=== PATIENT | female | born 1960 | race Caucasian/White ===

== ENCOUNTER 2020-01-26 16:15 | Outpatient (CLI) | payer OTHER, SELFPAY ==
[2020-01-26 16:37] LABS: INR 2.2; Prothrombin Time 23.7 Seconds (11.1-14.7)
== END 2020-01-26 16:16 | disposition home or self-care (01) ==
LOC: ANHLAB 16:17
PROVIDERS: PCP Internal Medicine; Visit Provider Internal Medicine Cardiovascular Disease
DX: I48.0 Paroxysmal atrial fibrillation (principal)
CPT/HCPCS: 36415; 85610

== ENCOUNTER 2020-05-22 08:37 | Outpatient (RCR) | payer OTHER, SELFPAY ==
[2020-03-21 13:37] LABS: INR 2.3
[2020-05-22 09:12] LABS: INR 2.5; Prothrombin Time 26.6 Seconds (11.1-14.7)
== END 2020-06-19 23:59 | disposition home or self-care (01) ==
LOC: ANHLAB 08:37
PROVIDERS: PCP Internal Medicine; Visit Provider Internal Medicine Cardiovascular Disease
DX: I48.0 Paroxysmal atrial fibrillation (principal)
CPT/HCPCS: 36415; 85610

== ENCOUNTER 2020-08-09 08:30 | Outpatient (CLI) | payer OTHER, SELFPAY ==
--- NOTE | ~2020-08-09 | US_ITS ---
US right upper quadrant DATE: 08/09/2020 08:55 INDICATION: Elevated liver enzyme levels TECHNIQUE: Real-time imaging of liver, pancreas, gallbladder areas COMPARISON: None FINDINGS: No hepatic or pancreatic space-occupying mass lesion is evident. Normal hepatopedal portal venous flow direction. No gallstones or gallbladder wall thickening or abnormal pericholecystic fluid collection are evident . Negative sonographic Peter's sign. The common bile duct measures 2 mm, normal. IMPRESSION: No significant abnormality Reviewed, dictated and finalized at [facility]. Reviewed, dictated and finalized at location B. IMPRESSION: No significant abnormality
== END 2020-08-09 08:31 | disposition home or self-care (01) ==
PROVIDERS: PCP Internal Medicine; Visit Provider Nurse Practitioner
DX: R74.8 Abnormal levels of other serum enzymes (principal)
CPT/HCPCS: 76705

== ENCOUNTER 2020-08-31 10:47 | Outpatient (RCR) | payer OTHER, SELFPAY ==
[2020-07-23 10:15] LABS: Basophils Absolute Auto 0.1 K/mm3 (0.0-0.1); Basophils Percent Auto 1.1 % (0.2-1.2); Eosinophils Absolute Auto 0.3 K/mm3 (0-0.3); Eosinophils Percent Auto 4.5 % (0-4.4); Hematocrit 48.7 % (37.0-47.0); Immature Granulocyte Absolute 0.02 K/mm3 (0.00-0.031); Immature Granulocyte Percent A 0.3 % (0-0.5); Lymphocytes Absolute Auto 1.37 K/mm3 (0.9-3.2); Lymphocytes Percent Auto 20.7 % (18.3-44.2); Mean Corpuscular HGB Conc 32.9 g/dl (32-36); Mean Corpuscular Hemoglobin 31.1 pg (26-34); Mean Corpuscular Volume 94.7 fl (80-100); Mean Platelet Volume 10.7 fl (7.4-10.4); Monocytes Absolute Auto 0.6 K/mm3 (0.1-0.6); Monocytes Percent Auto 8.9 % (2.6-8.5); Neutrophils Absolute Auto 4.3 K/mm3 (1.3-6.7); Neutrophils Percent Auto 64.5 % (45.5-73.1); Platelet Count Result 162 k/mm3 (150-375); Red Blood Count 5.14 M/mm3 (4.2-5.4); Red Cell Distribution Width 13.6 % (11.5-14.5); White Blood Count 6.6 K/mm3 (4.5-10.0)
[2020-07-23 10:28] LABS: Alanine Aminotransferase 50 U/L (4-35); Albumin Level 4.9 g/dL (3.5-5.1); Alkaline Phosphatase 56 U/L (38-126); Anion Gap 5 mmol/L (8-16); Aspartate Amino Transferase 67 U/L (14-36); Bilirubin,Total 0.5 mg/dL (0.2-1.3); Blood Urea Nitrogen 17 mg/dL (7-17); Calcium 9.5 mg/dL (8.4-10.2); Carbon Dioxide 33 mmol/L (22-30); Chloride 98 mmol/L (98-107); Cholesterol 204 mg/dL (0-200); Estimated Glomerular Filt Rate > 60; Glucose 94 mg/dL (65-105); HDL Direct 79 mg/dL; Potassium 4.5 mmol/L (3.4-5.0); Sodium 136 mmol/L (137-145); Triglycerides 132 mg/dL (<150)
[2020-07-23 10:35] LABS: INR 2.6
[2020-07-23 10:39] LABS: LDL Cholesterol Direct 88 mg/dL
[2020-08-31 11:23] LABS: INR 2.8; Prothrombin Time 29.1 Seconds (11.1-14.7)
== END 2020-10-21 23:59 | disposition home or self-care (01) ==
LOC: ANHLAB 10:47
PROVIDERS: PCP Internal Medicine; Referring Provider Nurse Practitioner; Visit Provider Internal Medicine Cardiovascular Disease
DX: I48.0 Paroxysmal atrial fibrillation (principal); Z13.228 Encounter for screening for other metabolic disorders
CPT/HCPCS: 36415; 80053; 80061; 85025; 85610

== ENCOUNTER 2020-08-31 13:59 | Emergency (ER) | payer OTHER, SELFPAY ==
[2020-08-31] VITALS (12 sets, daily range): BP systolic 111–144; BP diastolic 55–85; PULSE 85–118; RESP 14–35; TEMP 36.2; O2SAT 94–100
--- NOTE | ~2020-08-31 | XR_ITS ---
EXAMINATION: XR chest 2V 08/31/2020 15:40 INDICATION: Chest palpitations PROCEDURE: 2 view chest COMPARISON: 09/02/2019 FINDINGS: The lungs are clear. The cardiomediastinal silhouette is within normal limits. There are no pleural effusions. There is no pneumothorax suspected. There are breast implants. IMPRESSION: 1: NO ACUTE CARDIOPULMONARY DISEASE. Reviewed, dictated and finalized at location B.
--- NOTE | 2020-08-31 14:11 | ECG_ITS ---
Measurements Intervals [place] Rate: 103 P: AL: 0 QRS: -51 QRSD: 117 T: 96 QT: 335 QTc: 440 Interpretive Statements ATRIAL FLUTTER/TACHYCARDIA WITH RAPID VENTRICULAR RESPONSE LEFT AXIS DEVIATION INCOMPLETE LEFT BUNDLE BRANCH BLOCK ANTEROSEPTAL INFARCT, AGE INDETERMINATE BORDERLINE ST-T WAVE ABNORMALITY- HIGH LATERAL LEADS ABNORMAL ECG Electronically Signed On 08-31-2020 15:10:22 CDT by Bronson Grewal D.O.
--- NOTE | 2020-08-31 14:52 | ED.GENADULT ---
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 Reports she went into yesterday. She feels discomfort up in her throat and also feels like her head legs are heavy. This happens anytime she goes into atrial fibrillation. She takes flecainide. She followed up with her white lead grinder today who sent her to see ER for further evaluation. Denies chest discomfort or shortness of breath. She has no nausea or vomiting or sweats. She reports she has been under increased stress because her sister is terminally ill with cancer and is going to undergo some operations in the near future. Related Data Allergies Allergy/AdvReac Type Severity Reaction Status Date / Time No Known Allergies Allergy Unknown Verified 08/31/20 10:12 Review of Systems Review of Systems: All systems reviewed & are unremarkable except as noted in HPI and below Constitutional: Constitutional: Denies chills, Denies fever(s) and Denies weakness ENT: Denies nasal congestion and Denies sore throat Cardiovascular: Cardiovascular: Denies chest pain, Reports rapid heart rate and Reports radiating jaw, neck or arm pain Respiratory: Respiratory: Denies cough and Denies dyspnea Gastrointestinal: Gastrointestinal: Denies abdominal pain, Denies nausea and Denies vomiting Musculoskeletal: Musculoskeletal: Denies back pain and Denies muscle cramps Comments: Leg heaviness PMFSH Past Medical History Medical History Anxiety Atrial fibrillation Broken femur August 2018 Pulmonary emphysema Transaminitis Surgical History Surgical History (Updated 09/12/19 @ 10:58 by Marion Pizarro [facility]) H/O tubal ligation Family History Family History Mother Family history of malignant neoplasm of cervix Sibling Acute myocardial infarction Lung cancer Social History Social History Smoking packs per day: 0.5 Smoking cigarettes per day: 10.0 Smoking status: Current every day smoker Tobacco type: cigarettes Second hand tobacco smoke exposure: Yes Alcohol intake: never Substance use: never Gender identity (if verbalized by the patient): Female Exam Narrative: Exam Narrative: GENERAL: Well-appearing, well-nourished, and in no acute distress. HEAD: Normocephalic, atraumatic. ENT: Mucous membranes moist. CHEST: Clear to auscultation. No respiratory distress. HEART: Irregular regular rate and rhythm is tachycardic. Normal peripheral pulses. ABDOMEN: Soft, nontender, nondistended. EXTREMITIES: Normal range of motion. No edema. SKIN: Warm, dry, no rash. NEURO: Alert and oriented x3. Course Course Emergency Course: Discussed case with Dr. Mota. Patient has had improvement in heart rate. No hypoxia here and went on a walking O2 study without any hypoxia. Patient be started on Cardizem 180 mg CD daily. Needs follow-up in 1 week. Patient verbalized understanding. Vital Signs Vital signs: Vital Signs Pulse Rate 102 H 08/31/20 14:07 Respiratory Rate 33 H 08/31/20 14:07 Blood Pressure 144/85 H 08/31/20 14:07 Pulse Oximetry 98 08/31/20 14:07 Temperature 97.1 F L 08/31/20 14:11 Pulse Rate 96 08/31/20 16:15 Respiratory Rate 24 H 08/31/20 16:15 Blood Pressure 118/73 08/31/20 16:11 Pulse Oximetry 99 08/31/20 16:15 Medical Decision Making Vital Signs Vital Signs: Vital Signs Pulse Rate 102 H 08/31/20 14:07 Respiratory Rate 33 H 08/31/20 14:07 Blood Pressure 144/85 H 08/31/20 14:07 Pulse Oximetry 98 08/31/20 14:07 Temperature 97.1 F L 08/31/20 14:11 Pulse Rate 96 08/31/20 16:15 Respiratory Rate 24 H 08/31/20 16:15
--- NOTE | 2020-08-31 15:01 | PC.NURSE ---
Pt ambulatory to bathroom. Denies chest tightness or shortness of breath. Pt states is feeling better. Note pt's heart rate has decreased to the 90's. Pt stood up and heart rate increases to [address] Melo made aware.
[2020-08-31] MEDS: dilTIAZem HCl INJ 25 MG/5 ML VIAL 10 MG IV PUSH (15:04)
[2020-08-31 15:47] LABS: Basophils Absolute Auto 0.1 K/mm3 (0.0-0.1); Basophils Percent Auto 0.8 % (0.2-1.2); Eosinophils Absolute Auto 0.2 K/mm3 (0-0.3); Eosinophils Percent Auto 2.1 % (0-4.4); Hematocrit 45.5 % (37.0-47.0); Immature Granulocyte Absolute 0.02 K/mm3 (0.00-0.031); Immature Granulocyte Percent A 0.2 % (0-0.5); Lymphocytes Absolute Auto 2.17 K/mm3 (0.9-3.2); Lymphocytes Percent Auto 21.8 % (18.3-44.2); Mean Corpuscular Hemoglobin 31.8 pg (26-34); Mean Corpuscular Volume 96.4 fl (80-100); Mean Platelet Volume 11.3 fl (7.4-10.4); Monocytes Absolute Auto 1.1 K/mm3 (0.1-0.6); Monocytes Percent Auto 10.6 % (2.6-8.5); Neutrophils Absolute Auto 6.4 K/mm3 (1.3-6.7); Neutrophils Percent Auto 64.5 % (45.5-73.1); Platelet Count Result 199 k/mm3 (150-375); Red Blood Count 4.72 M/mm3 (4.2-5.4); Red Cell Distribution Width 13.4 % (11.5-14.5)
[2020-08-31 15:57] LABS: INR 2.9; Prothrombin Time 29.6 Seconds (11.1-14.7)
[2020-08-31 15:58] LABS: Partial Thromboplastin Time 34.6 SECONDS (22.3-36.8)
[2020-08-31 16:00] LABS: Anion Gap 4 mmol/L (8-16); Blood Urea Nitrogen 29 mg/dL (7-17); Calcium 9.5 mg/dL (8.4-10.2); Carbon Dioxide 38 mmol/L (22-30); Chloride 97 mmol/L (98-107); Estimated CRCL calculation 74 ml/min; Estimated Glomerular Filt Rate > 60; Glucose 67 mg/dL (65-105); Potassium 4.3 mmol/L (3.4-5.0); Sodium 139 mmol/L (137-145)
[2020-08-31 16:13] LABS: Troponin I < 0.012 ng/mL (0.000-0.034)
--- NOTE | 2020-08-31 16:23 | ECG_ITS ---
Measurements Intervals [place] Rate: 88 P: SD: 0 QRS: -51 QRSD: 114 T: 82 QT: 401 QTc: 487 Interpretive Statements ATRIAL FLUTTER/TACHYCARDIA LEFT AXIS DEVIATION INCOMPLETE LEFT BUNDLE BRANCH BLOCK ANTEROSEPTAL INFARCT, AGE INDETERMINATE BORDERLINE ST-T WAVE ABNORMALITY- HIGH LATERAL LEADS ABNORMAL ECG Electronically Signed On 08-31-2020 17:12:29 CDT by Bronson Grewal D.O.
--- NOTE | 2020-08-31 16:23 | PC.NURSE ---
EKG repeated due to pt having possible change in cardiac rhythm.
--- NOTE | 2020-08-31 16:29 | PC.NURSE ---
Dr. Melo ambulating patient around department with pulse oximetry.
== END 2020-08-31 16:39 | disposition home or self-care (01) ==
PROVIDERS: Emergency Provider Emergency Medicine; PCP Internal Medicine
DX: I48.91 Unspecified atrial fibrillation (principal); J43.9 Emphysema, unspecified; F17.210 Nicotine dependence, cigarettes, uncomplicated; I44.7 Left bundle-branch block, unspecified; R94.31 Abnormal electrocardiogram [ECG] [EKG]
CPT/HCPCS: 36415; 71046; 80048; 84484; 85025; 85610; 85730; 93005; 96374; 99284

== ENCOUNTER 2020-11-29 09:49 | Outpatient (CLI) | payer OTHER, SELFPAY ==
[2020-11-29 10:22] LABS: Basophils Absolute Auto 0.1 K/mm3 (0.0-0.1); Basophils Percent Auto 0.9 % (0.2-1.2); Eosinophils Absolute Auto 0.3 K/mm3 (0-0.3); Eosinophils Percent Auto 3.4 % (0-4.4); Hematocrit 45.3 % (37.0-47.0); Immature Granulocyte Absolute 0.01 K/mm3 (0.00-0.031); Immature Granulocyte Percent A 0.1 % (0-0.5); Lymphocytes Absolute Auto 1.41 K/mm3 (0.9-3.2); Lymphocytes Percent Auto 17.8 % (18.3-44.2); Mean Corpuscular HGB Conc 33.1 g/dl (32-36); Mean Corpuscular Hemoglobin 31.4 pg (26-34); Mean Corpuscular Volume 94.8 fl (80-100); Mean Platelet Volume 11.4 fl (7.4-10.4); Monocytes Absolute Auto 0.8 K/mm3 (0.1-0.6); Monocytes Percent Auto 10.3 % (2.6-8.5); Neutrophils Absolute Auto 5.3 K/mm3 (1.3-6.7); Neutrophils Percent Auto 67.5 % (45.5-73.1); Platelet Count Result 170 k/mm3 (150-375); Red Blood Count 4.78 M/mm3 (4.2-5.4); Red Cell Distribution Width 13.4 % (11.5-14.5); White Blood Count 7.9 K/mm3 (4.5-10.0)
== END 2020-11-29 09:50 | disposition home or self-care (01) ==
PROVIDERS: Family Provider Internal Medicine Infectious Disease; PCP Internal Medicine; Visit Provider Clinical Nurse Specialist
DX: D75.1 Secondary polycythemia (principal)
CPT/HCPCS: 36415; 85025

== ENCOUNTER 2021-01-14 12:58 | Outpatient (RCR) | payer OTHER, SELFPAY ==
[2020-10-24 13:52] LABS: INR 2.2; Prothrombin Time 24.7 Seconds (11.1-14.7)
[2021-01-03 13:40] LABS: INR 1.3; Prothrombin Time 16.6 Seconds (11.1-14.7)
== END 2021-01-22 23:59 | disposition home or self-care (01) ==
LOC: ANHLAB 12:58
PROVIDERS: PCP Internal Medicine; Visit Provider Internal Medicine Cardiovascular Disease
DX: I48.91 Unspecified atrial fibrillation (principal); Z13.220 Encounter for screening for lipoid disorders; Z13.228 Encounter for screening for other metabolic disorders
CPT/HCPCS: 36415; 85610

== ENCOUNTER 2021-04-15 08:53 | Outpatient (RCR) | payer OTHER, SELFPAY ==
[2021-03-01 14:21] LABS: INR 2.8; Prothrombin Time 29.8 Seconds (11.1-14.7)
[2021-04-15 09:17] LABS: INR 2.4; Prothrombin Time 27.1 Seconds (11.1-14.7)
== END 2021-05-30 23:59 | disposition home or self-care (01) ==
LOC: ANHLAB 08:53
PROVIDERS: PCP Internal Medicine; Visit Provider Internal Medicine Cardiovascular Disease
DX: I48.91 Unspecified atrial fibrillation (principal)
CPT/HCPCS: 36415; 85610

== ENCOUNTER 2021-08-01 12:15 | Outpatient (CLI) | payer OTHER, SELFPAY ==
[2021-08-01 12:38] LABS: Basophils Percent Auto 0.6 % (0.2-1.2); Eosinophils Absolute Auto 0.2 K/mm3 (0-0.3); Eosinophils Percent Auto 2.7 % (0-4.4); Hemoglobin 14.9 g/dL (12.0-15.0); Immature Granulocyte Absolute 0.01 K/mm3 (0.00-0.031); Immature Granulocyte Percent A 0.2 % (0-0.5); Lymphocytes Absolute Auto 1.44 K/mm3 (0.9-3.2); Lymphocytes Percent Auto 21.9 % (18.3-44.2); Mean Corpuscular HGB Conc 31.7 g/dl (32-36); Mean Corpuscular Hemoglobin 31.2 pg (26-34); Mean Corpuscular Volume 98.5 fl (80-100); Monocytes Absolute Auto 0.8 K/mm3 (0.1-0.6); Monocytes Percent Auto 11.5 % (2.6-8.5); Neutrophils Absolute Auto 4.2 K/mm3 (1.3-6.7); Neutrophils Percent Auto 63.1 % (45.5-73.1); Platelet Count Result 161 k/mm3 (150-375); Red Blood Count 4.77 M/mm3 (4.2-5.4); Red Cell Distribution Width 13.3 % (11.5-14.5); White Blood Count 6.6 K/mm3 (4.5-10.0)
[2021-08-01 12:52] LABS: Alanine Aminotransferase 42 U/L (4-35); Albumin Level 4.8 g/dL (3.5-5.1); Alkaline Phosphatase 60 U/L (38-126); Anion Gap 9 mmol/L (8-16); Aspartate Amino Transferase 64 U/L (14-36); Bilirubin,Total 0.5 mg/dL (0.2-1.3); Blood Urea Nitrogen 15 mg/dL (7-17); Calcium 9.4 mg/dL (8.4-10.2); Carbon Dioxide 30 mmol/L (22-30); Chloride 100 mmol/L (98-107); Cholesterol 196 mg/dL (0-200); Estimated Glomerular Filt Rate > 60; Glucose 102 mg/dL (65-110); HDL Direct 81 mg/dL; Potassium 4.4 mmol/L (3.4-5.0); Sodium 139 mmol/L (137-145); Triglycerides 88 mg/dL (<150)
[2021-08-01 13:03] LABS: LDL Cholesterol Direct 85 mg/dL
== END 2021-08-01 12:16 | disposition home or self-care (01) ==
LOC: ANHLAB 12:17
PROVIDERS: PCP Internal Medicine; Visit Provider Clinical Nurse Specialist
DX: Z13.220 Encounter for screening for lipoid disorders (principal); I48.91 Unspecified atrial fibrillation; D75.1 Secondary polycythemia
CPT/HCPCS: 36415; 80053; 80061; 85025

== ENCOUNTER 2021-08-13 13:33 | Outpatient (CLI) | payer OTHER, SELFPAY ==
[2021-08-13 15:25] LABS: Thyroid Stimulating Hormone 0.074 uIU/mL (0.465-4.680)
[2021-08-13 15:35] LABS: HIV 1/2 Ab P24 Ag Result Negative (Negative)
[2021-08-13 16:36] LABS: Hepatitis B Surface Antigen Negative (Negative)
[2021-08-13 19:00] LABS: Iron 125 ug/dL (37-170); Percent Iron Saturation 35 % (20-50)
[2021-08-21 23:45] LABS: Gliadin AB, IgG <1.0 U/mL (<15.0); Reticulin IgA Negative (Negative); TTG IGA AB <1.0 U/mL (<15.0)
== END 2021-08-13 13:34 | disposition home or self-care (01) ==
PROVIDERS: PCP Internal Medicine; Visit Provider Nurse Practitioner
DX: R74.01 Elevation of levels of liver transaminase levels (principal)
CPT/HCPCS: 36415; 83516; 83540; 83550; 84443; 86255; 86703; 87340; G0432

== ENCOUNTER 2021-08-15 13:48 | Outpatient (CLI) | payer OTHER, SELFPAY ==
[2021-08-15 15:02] LABS: Free T4 Free Thyroxine 1.74 ng/mL (0.78-2.19)
[2021-08-15 15:05] LABS: Thyroid Stimulating Hormone 0.115 uIU/mL (0.465-4.680)
[2021-08-20 07:28] LABS: Triiodothyronine T3 Free 2.4 pg/mL (2.3-4.2)
== END 2021-08-15 13:49 | disposition home or self-care (01) ==
PROVIDERS: PCP Internal Medicine; Visit Provider Nurse Practitioner
DX: E05.90 Thyrotoxicosis, unspecified without thyrotoxic crisis or storm (principal)
CPT/HCPCS: 36415; 84439; 84443; 84481

== ENCOUNTER 2021-09-04 13:51 | Outpatient (CLI) | payer OTHER, SELFPAY ==
--- NOTE | ~2021-09-04 | CT_ITS ---
EXAMINATION: CT lung screening DATE: 09/04/2021 14:15 INDICATION: Personal history of tobacco dependence TECHNIQUE: Computed tomography (CT) of the chest was performed without intravenous contrast. The dose -length product was 63.96 mGy-cm. Automated exposure control and iterative reconstruction technique w ere employed. COMPARISON: CT dated 08/12/2019 FINDINGS: There are bilateral breast implants. There is mild atherosclerosis of the aorta and coronar y arteries. No aneurysm. Heart size normal. No significant pleural or pericardial effusion. There are mildly enlarged mediastinal lymph nodes, likely reactive. The upper abdomen is unremarkable. There i s emphysema. There is 2 mm right upper lobe nodule, coronal image 44. There are additional small nodu les in the upper lobes measuring 2 mm or less. No focal consolidation. No pneumothorax. No acute bone or joint abnormality. Mild lumbar spondylosis. Thyroid gland is unremarkable. IMPRESSION: 1. Lung-RADS category 2: Benign appearance or behavior. Continue annual screening with noncontrast lo w-dose chest CT in 12 months. Reviewed, dictated and finalized at location A. IMPRESSION: 1. Lung-RADS category 2: Benign appearance or behavior. Continue annual screeni ng with noncontrast low-dose chest CT in 12 months.
== END 2021-09-04 13:52 | disposition home or self-care (01) ==
LOC: ANHIMG 13:52
PROVIDERS: PCP Internal Medicine; Visit Provider Nurse Practitioner
DX: Z12.2 Encounter for screening for malignant neoplasm of respiratory organs (principal); Z87.891 Personal history of nicotine dependence
CPT/HCPCS: 71271

== ENCOUNTER 2021-10-09 01:08 | Day surgery (SDC) | payer OTHER, SELFPAY ==
[2021-09-20 14:06] VITALS: BMI 18.5
--- NOTE | 2021-10-09 07:30 | P.PNAN_ITS ---
Anes - Initial Pre Proc Eval Procedure: Operation Date: 10/09/21 10:15 Proposed Procedures p Esophagogastroduodenoscopy - Dung Rankin MD Date/Time: 10/09/21 07:30 Surgeon: Dung Rankin MD Pre Op Diagnosis: Epigastric pain Patient Data Age: 60 Gender: F Height: 1.75 m Weight: 57 kg Allergies Allergy/AdvReac Type Severity Reaction Status Date / Time No Known Allergies Allergy Unknown Verified 10/09/21 09:01 Home Medications Medication Instructions Recorded Confirmed Type warfarin 5 mg tablet 5 mg PO DAILY #30 tablet 08/21/20 09/20/21 Rx flecainide 100 mg tablet 100 mg PO Q12H #60 tablet 02/22/21 09/20/21 Rx venlafaxine 37.5 mg 37.5 mg PO DAILY #90 cap 06/17/21 09/20/21 Rx capsule,extended release 24 hr Patient hx anesthesia problems: none Family hx anesthesia problems: none Results Review: All pre-operative results and documents have been reviewed as part of the pre-operative evaluation. [facility] Past Medical History Medical History Anxiety Atrial fibrillation Broken femur August 2018 Hyperthyroidism Hyperthyroidism Pulmonary emphysema Transaminitis Surgical History Surgical History H/O tubal ligation Family History Family History Mother Family history of malignant neoplasm of cervix Sibling Acute myocardial infarction Lung cancer Social History Social History Smoking packs per day: 1 Smoking cigarettes per day: 20.0 Years smoked: 40 Smoking pack-years: 40.00 Smoking status: Former smoker Tobacco type: cigarettes Second hand tobacco smoke exposure: Yes Smoking end date: 03/09/21 Alcohol intake: never Substance use: never Living arrangements: alone Gender identity (if verbalized by the patient): Female Spiritual care concerns: No Anes - Eval Final PreProcedure Day of Procedure 10/09/21 07:30 Patient weight: thin Heart: regular rate and rhythm Lungs: clear to auscultation and normal air movement Airway: Mallampati scale class II Neurological: alert and oriented Last oral intake: >/= 8 hours ASA classification: III Emergent: no Anesthetic plan: proceed Anesthesia type and monitoring: general GIVS and standard monitoring Results Review: All pre-operative results and documents have been reviewed as part of the pre-operative evaluation. Informed Consent: The patient's anesthetic plan and its attendant risks and benefits were discussed with the patient/family/POA. Questions were solicited and answers provided to the satisfaction of the patient/family/POA.
[2021-10-09 09:02] VITALS: BP 121/65; PULSE 80; RESP 18; TEMP 36.6; O2SAT 100
[2021-10-09] MEDS: LACTATED RINGERS 1,000 ML 150 ML IV CONT (09:21)
--- NOTE | 2021-10-09 09:37 | PM.HPGS ---
History of Present Illness History of Present Illness Consent: Risks, benefits, and alternatives have been discussed and questions answered. Patient agrees to proceed with procedure. Chief complaint: Epigastric pain Narrative: Mireya Manriquez is a 60 year old female with epigastric pain and queasiness sensation, denies reflux though, not using ppi. Review of Systems Constitutional: Constitutional: Denies headache(s) and Denies weakness Eyes: Eyes: Denies blurry vision ENT: Reports Normal hearing present, Denies headache(s) and Denies neck pain Cardiovascular: Cardiovascular: Denies chest pain and Denies dyspnea Respiratory: Respiratory: Denies dyspnea Gastrointestinal: Gastrointestinal: Reports no additional gastrointestinal complaints Genitourinary: Genitourinary: Denies dysuria Musculoskeletal: Musculoskeletal: Denies neck pain Integumentary/Breasts: Skin/Breast: Denies dry skin Neurologic: Reports Normal hearing present, Denies headache(s) and Denies weakness Psychiatric: Psychiatric: Denies anxiety Endocrine: Endocrine: Denies change in body appearance Hematologic/Lymphatic: Hematologic/Lymphatic: Denies easy bleeding Allergic/Immunologic: Allergic/Immunologic: Denies urticaria [facility] Past Medical History Medical History (Updated 10/09/21 @ 09:38 by Dung Rankin MD) Anxiety Atrial fibrillation Broken femur August 2018 Epigastric pain Hyperthyroidism Hyperthyroidism Pulmonary emphysema Transaminitis Surgical History Surgical History H/O tubal ligation Family History Family History Mother Family history of malignant neoplasm of cervix Sibling Acute myocardial infarction Lung cancer Social History Social History Smoking packs per day: 1 Smoking cigarettes per day: 20.0 Years smoked: 40 Smoking pack-years: 40.00 Smoking status: Former smoker Tobacco type: cigarettes Second hand tobacco smoke exposure: Yes Smoking end date: 03/09/21 Alcohol intake: never Substance use: never Living arrangements: alone Gender identity (if verbalized by the patient): Female Spiritual care concerns: No Meds Home Medications and Allergies Home Medications Medication Instructions Recorded Confirmed Type warfarin 5 mg tablet 5 mg PO DAILY #30 tablet 08/21/20 09/20/21 Rx flecainide 100 mg tablet 100 mg PO Q12H #60 tablet 02/22/21 09/20/21 Rx venlafaxine 37.5 mg 37.5 mg PO DAILY #90 cap 06/17/21 09/20/21 Rx capsule,extended release 24 hr Allergies Allergy/AdvReac Type Severity Reaction Status Date / Time No Known Allergies Allergy Unknown Verified 10/09/21 09:01 Vital Signs Vital Signs - 24 hr 10/09/21 09:02 Temperature 97.8 F Pulse Rate 80 Respiratory Rate 18 Blood Pressure 121/65 Pulse Oximetry 100 Exam Const: General: comfortable and no acute distress HENMT: General nose exam: Normal nares present Eyes: General: appearance normal, both eyes and all related structures Neck: Neck: no JVD Resp: Auscultation: clear to auscultation bilaterally Cardio: Rate: regular rate Rhythm: regular rhythm GI: Inspection: non-distended GI Palp: Yes Soft to palpation Skin: General skin exam: normal color Neuro: General: gait normal Speech: normal speech Extrem: General: normal to inspection Psych: Mental Status: mental status grossly normal Assessment and Plan Assessment and plan (1) Epigastric pain: Code(s): R10.13 - Epigastric pain Status: Acute Assessment and Plan: egd with bx
[2021-10-09 09:49] VITALS: BP 116/77; PULSE 99; RESP 28; O2SAT 100
[2021-10-09 09:59] VITALS: BP 120/72; PULSE 88; RESP 24; O2SAT 100
[2021-10-09 10:09] VITALS: BP 124/82; PULSE 85; RESP 20; O2SAT 100
== END 2021-10-09 10:20 | disposition home or self-care (01) ==
PROVIDERS: PCP Internal Medicine; Visit Provider Internal Medicine Gastroenterology
PROC: 0DJ08ZZ Inspection of Upper Intestinal Tract, Via Natural or Artificial Opening Endoscopic (ICD-10-PCS; CPT 43235; principal; 2021-10-09 10:15)
DX: K29.50 Unspecified chronic gastritis without bleeding (principal); K44.9 Diaphragmatic hernia without obstruction or gangrene; I48.91 Unspecified atrial fibrillation; F41.9 Anxiety disorder, unspecified; E05.90 Thyrotoxicosis, unspecified without thyrotoxic crisis or storm; Z87.891 Personal history of nicotine dependence; Z79.01 Long term (current) use of anticoagulants
CPT/HCPCS: 43239; 88305; J2704; J7120

== ENCOUNTER 2021-12-28 11:25 | Outpatient (CLI) | payer OTHER, SELFPAY ==
--- NOTE | ~2021-12-28 | XR_ITS ---
XR cervical spine min 6V 12/28/2021 11:43 Indication: Neck pain Procedure: 7 views of the cervical spine including flexion/extension views Comparison: No prior studies for comparison. Findings: No fracture, subluxation or dislocation. There is advanced degenerative disc disease at C4- 5, C5-6 and C6-7 with reversal of cervical lordosis. No significant alteration of alignment with flex ion/extension. There is degenerative anterolisthesis at C5-C6 and retrolisthesis at C6-7. No preverte bral soft tissue swelling. There is advanced multilevel uncinate and facet degenerative change Impression: 1: Severe cervical spondylosis. Reviewed, dictated and finalized at location A. TENANCE CHIEF Impression: 1: Severe cervical spondylosis.
== END 2021-12-28 11:26 | disposition home or self-care (01) ==
LOC: ANHIMG 11:30
PROVIDERS: PCP Internal Medicine; Visit Provider Nurse Practitioner
DX: M47.892 Other spondylosis, cervical region (principal)
CPT/HCPCS: 72052

== ENCOUNTER 2022-04-02 16:20 | Outpatient (CLI) | payer OTHER, SELFPAY ==
--- NOTE | ~2022-04-02 | CT_ITS ---
EXAMINATION: CT cervical spine wo con DATE: 04/02/2022 16:35 INDICATION: Neck pain TECHNIQUE: Computed tomography (CT) of the cervical spine was performed without intravenous contrast. Automated exposure control and iterative reconstruction technique were employed. The dose-length pro duct was 145.44 mGy-cm. COMPARISON: Cervical spine radiographs dated 12/28/2021 FINDINGS: Severe osteoarthritis at the atlantoaxial articulation. Mild cervical dextrocurvature. 2-3 mm anterol isthesis C4 on C5 with associated focal kyphosis at this level. Chronic mild vertebral body height lo ss at T6. Additional chronic mild compression fracture along the left superior endplate of C7. Schmor l's nodes along the superior endplates of T2 and T3. No acute fracture. Moderate disc height loss at C4-C5. Mild disc height loss at C5-C6 and C6-C7. Small amount of atherosclerotic plaque at the bilate ral carotid bulbs. Cervical soft tissues are otherwise unremarkable. Mild emphysema the apices of the lungs. The following disc levels are specifically discussed: C2-C3: There is mild left and minimal right uncovertebral joint osteoarthritis. There is mild right a nd severe left facet joint osteoarthritis. There is mild left neural foraminal stenosis. There is no central canal stenosis. C3-C4: There is mild left and minimal right uncovertebral joint osteoarthritis. There is moderate rig ht and severe left facet joint osteoarthritis. There is mild left neural foraminal stenosis. There is no central canal stenosis. C4-C5: Small posterior disc osteophyte complex. There is moderate left and mild right uncovertebral j oint osteoarthritis. There is moderate to severe right and severe left facet joint osteoarthritis. Th ere is mild left neural foraminal stenosis. There is mild central canal stenosis. C5-C6: Posterior disc osteophyte complex. There is severe left and moderate right uncovertebral joint osteoarthritis. There is mild bilateral facet joint osteoarthritis. There is moderate left and mild right neural foraminal stenosis. There is mild central canal stenosis. C6-C7: Posterior disc osteophyte complex. There is severe bilateral uncovertebral joint osteoarthriti s. There is mild bilateral facet joint osteoarthritis. There is mild bilateral neural foraminal steno sis. There is mild central canal stenosis. C7-T1: There is minimal bilateral uncovertebral joint osteoarthritis. There is moderate right and sev ere left facet joint osteoarthritis. There is minimal bilateral neural foraminal stenosis. There is n o central canal stenosis. IMPRESSION: 1. Moderate cervical spondylosis with mild kyphosis and mild dextrocurvature. 2. Chronic mild vertebral body height loss at C6 and C7. No acute osseous abnormality. Reviewed, dictated and finalized at location B. IMPRESSION: 1. Moderate cervical spondylosis with mild kyphosis and mild dextrocurvature. 2. Chronic mild vertebral body height loss at C6 and C7. No acute osseous abnor mality.
== END 2022-04-02 16:21 | disposition home or self-care (01) ==
PROVIDERS: PCP Internal Medicine; Visit Provider Nurse Practitioner Family
DX: M47.892 Other spondylosis, cervical region (principal)
CPT/HCPCS: 72125

== ENCOUNTER 2022-04-29 10:45 | Outpatient (CLI) | payer OTHER, SELFPAY ==
[2022-04-29 11:34] LABS: INR 1.1; Prothrombin Time 13.3 Seconds (11.1-14.7)
== END 2022-04-29 10:46 | disposition home or self-care (01) ==
LOC: ANHLAB 10:47
PROVIDERS: PCP Internal Medicine; Visit Provider Nurse Practitioner Family
DX: Z79.01 Long term (current) use of anticoagulants (principal)
CPT/HCPCS: 36415; 85610

== ENCOUNTER 2022-06-06 10:06 | Outpatient (CLI) | payer OTHER, SELFPAY ==
[2022-06-06 10:51] LABS: Basophils Absolute Auto 0.1 K/mm3 (0.0-0.1); Basophils Percent Auto 0.8 % (0.2-1.2); Eosinophils Absolute Auto 0.1 K/mm3 (0-0.3); Eosinophils Percent Auto 2.1 % (0-4.4); Hematocrit 44.9 % (37.0-47.0); Hemoglobin 14.1 g/dL (12.0-15.0); Immature Granulocyte Absolute 0.01 K/mm3 (0.00-0.031); Immature Granulocyte Percent A 0.2 % (0-0.5); Lymphocytes Absolute Auto 1.02 K/mm3 (0.9-3.2); Lymphocytes Percent Auto 16.5 % (18.3-44.2); Mean Corpuscular HGB Conc 31.4 g/dl (32-36); Mean Corpuscular Volume 98.7 fl (80-100); Mean Platelet Volume 11.2 fl (7.4-10.4); Monocytes Absolute Auto 0.7 K/mm3 (0.1-0.6); Neutrophils Absolute Auto 4.3 K/mm3 (1.3-6.7); Neutrophils Percent Auto 69.4 % (45.5-73.1); Platelet Count Result 164 k/mm3 (150-375); Red Blood Count 4.55 M/mm3 (4.2-5.4); Red Cell Distribution Width 14.2 % (11.5-14.5); White Blood Count 6.2 K/mm3 (4.5-10.0)
[2022-06-06 11:03] LABS: Alanine Aminotransferase 47 U/L (6-35); Albumin Level 4.4 g/dL (3.5-5.1); Alkaline Phosphatase 56 U/L (38-126); Anion Gap 4 mmol/L (8-16); Aspartate Amino Transferase 63 U/L (14-36); Bilirubin,Total 0.5 mg/dL (0.2-1.3); Blood Urea Nitrogen 13 mg/dL (7-17); Calcium 8.8 mg/dL (8.4-10.2); Carbon Dioxide 38 mmol/L (22-30); Chloride 97 mmol/L (98-107); Cholesterol 193 mg/dL (0-200); Estimated Glomerular Filt Rate > 60; Glucose 97 mg/dL (65-110); HDL Direct 74 mg/dL; Potassium 4.6 mmol/L (3.4-5.0); Sodium 139 mmol/L (137-145); Triglycerides 65 mg/dL (<150)
[2022-06-06 11:14] LABS: LDL Cholesterol Direct 72 mg/dL
[2022-06-06 11:32] LABS: Thyroid Stimulating Hormone 0.559 uIU/mL (0.465-4.680)
[2022-06-06 11:39] LABS: Free T4 Free Thyroxine 2.01 ng/mL (0.78-2.19); Vitamin D 25 Hydroxy 59.7 ng/mL
[2022-06-12 06:24] LABS: Triiodothyronine T3 Free 2.5 pg/mL (2.3-4.2)
== END 2022-06-06 10:07 | disposition home or self-care (01) ==
LOC: ANHLAB 10:08
PROVIDERS: PCP Internal Medicine; Visit Provider Nurse Practitioner
DX: E05.90 Thyrotoxicosis, unspecified without thyrotoxic crisis or storm (principal)
CPT/HCPCS: 36415; 80053; 80061; 82306; 84439; 84443; 84481; 85025

== ENCOUNTER 2022-09-10 15:15 | Outpatient (CLI) | payer OTHER, SELFPAY ==
--- NOTE | ~2022-09-10 | CT_ITS ---
EXAMINATION: CT lung screening DATE: 09/10/2022 16:17 INDICATION: Former tobacco use-repeat study TECHNIQUE: Computed tomography (CT) of the chest was performed without intravenous contrast. Addition al 3D reconstructions utilizing coronal maximum intensity projection (MIP) were performed. Automated exposure control and iterative reconstruction technique were employed. The dose-length product was 65 .27 mGy-cm. COMPARISON: 09/04/2021 and 08/12/2019 FINDINGS: Mild emphysema. A couple tiny calcified nodules anterior right apex consistent with old granulomatous disease. A few additional noncalcified one-2 mm nodules in the bilateral upper lobes. No new or enla rging pulmonary nodules. Thickened bandlike discoid atelectasis/scarring in the right middle lobe wit h thinner linear discoid atelectasis/scarring at the lateral basilar right lower lobe. No pneumonia, pulmonary edema or pleural effusion. Heart size is normal. No pericardial effusion. Thoracic aorta is normal in caliber. Bilateral breast implants. No interval change in asymmetric enlargement left axil dimitri and subpectoral lymph nodes, the largest measuring 2.0 x 1.4 cm which is unchanged. Visualized u pper abdomen is unremarkable. There are few Schmorl's nodes in the upper thoracic, lower thoracic and upper lumbar spine. IMPRESSION: 1. Lung-RADS category 2: Benign appearance or behavior. Continue annual screening with noncontrast lo w-dose chest CT in 12 months. 2. No interval change in chronic mildly enlarged left axillary and subpectoral lymph nodes which are likely reactive. Reviewed, dictated and finalized at location B. IMPRESSION: 1. Lung-RADS category 2: Benign appearance or behavior. Continue annual screeni ng with noncontrast low-dose chest CT in 12 months. 2. No interval change in chronic mildly enlarged left axillary and subpectoral lymph nodes which are likely reactive.
--- NOTE | ~2022-09-10 | DEXA_ITS ---
Bone Density Report Name: ALICE SCHAEFFER Age: 61 Sex: Female Ethnicity: White Date of : 1960 Indication: postmenopausal; screening for osteoporosis; height loss; Referring Provider: MALINI BARR Study: Bone densitometry was performed. Exam Date: September 10, 2022 Accession number: [id number] Bone Density: Region BMD T-score Z-score Classification AP Spine(L1, L2, L3) 0.865 -1.4 0.2 Osteopenia Femoral Neck (Left) 0.615 -2.1 -0.7 Osteopenia Total Hip (Left) 0.661 -2.3 -1.2 Osteopenia Femoral Neck (Right) 0.580 -2.4 -1.0 Osteopenia Total Hip (Right) 0.588 -2.9 -1.7 Osteoporosis Total Hip Mean 0.625 -2.6 -1.5 Osteoporosis World Health Organization criteria for BMD impression classify patients as: Normal (T-score at or above -1.0), Osteopenia (T-score between -1.0 and -2.5), or Osteoporosis (T-score at or below -2.5). 10-year Fracture Risk: FRAX not reported because: Some T-score for Spine Total or Hip Total or Femoral Neck at or below -2.5 Clinical Information Provided by Patient: Has used the following medications: Vitamin D, Calcium Patient maximum height was 70 Menopause Age: 43 Drinks caffeinated beverages Onset of menses at age 12 Number of children 1 Impression: The patient has osteoporosis, based on the Right Total Hip T-score. Discussion: INCREASED RISK OF FRACTURE. BONE DENSITY IS UNDESIRABLY LOW AT ONE OR MORE SKELETAL SITES, CONSISTENT WITH POSTMENOPAUSAL OSTEOPOROSIS. This patient's lowest T-score meets the World Health Organization's (WHO) criteria for osteoporosis at one or more sites (T-score -2.5 or below). In untreated patients, the risk of osteoporotic fracture increases approximately two-fold for each 1.0 SD decrease in T-score. Low bone density is not the only risk factor for fracture; also consider factors such as patient's age, frailty or poor health, risk of falling, risk of injury, previous osteoporotic fracture, family history of osteoporosis, cigarette smoking, low body weight, etc. Not everyone with low bone mineral density has osteoporosis; osteomalacia and other metabolic bone disorders should also be considered. Patients who have osteoporosis should be evaluated for specific diseases and conditions (secondary causes) that may cause or contribute to bone loss. The [place] [employer]ocrinologists (AACE) and National Osteoporosis Foundation (NOF) recommend pharmacologic intervention for all postmenopausal women whose T-score is in this range. The patient should follow a healthful lifestyle (good nutrition with adequate calcium and vitamin D, and appropriate weight-bearing exercise). Follow-Up: Consider a repeat BMD and Vertebral Fracture Assessment (VFA) exam in 2 years or sooner if medically necessary, to reassess this patient's status.
== END 2022-09-10 15:16 | disposition home or self-care (01) ==
PROVIDERS: PCP Internal Medicine; Visit Provider Nurse Practitioner
DX: Z12.2 Encounter for screening for malignant neoplasm of respiratory organs (principal); Z87.891 Personal history of nicotine dependence; E05.90 Thyrotoxicosis, unspecified without thyrotoxic crisis or storm; N95.1 Menopausal and female climacteric states; M85.88 Other specified disorders of bone density and structure, other site; M85.852 Other specified disorders of bone density and structure, left thigh; M85.851 Other specified disorders of bone density and structure, right thigh; M81.0 Age-related osteoporosis without current pathological fracture
CPT/HCPCS: 71271; 77080

== ENCOUNTER 2022-11-19 00:56 | Day surgery (SDC) | payer OTHER, SELFPAY ==
[2022-11-11 13:27] VITALS: BMI 17.1
[2022-11-19 09:38] VITALS: BP 126/73; PULSE 73; RESP 18; TEMP 36.4; O2SAT 97
[2022-11-19] MEDS: LACTATED RINGERS 1,000 ML 150 ML IV CONT (09:51)
--- NOTE | 2022-11-19 10:11 | WPDANESEPPF ---
Anes - Initial Pre Proc Eval Procedure: Operation Date: 11/19/22 10:45 Proposed Procedures p Esophagogastroduodenoscopy EGD - Dung Rankin MD Date/Time: 11/19/22 10:11 Surgeon: Dung Rankin MD Pre Op Diagnosis: GERD, Barretts' Patient Data Age: 61 Gender: F Height: 1.75 m Weight: 49.5 kg Last Vital Signs Temp 97.6 F 11/19/22 09:38 Pulse 73 11/19/22 09:38 Resp 18 11/19/22 09:38 BP 126/73 11/19/22 09:38 Pulse Ox 97 11/19/22 09:38 O2 Del Method Room Air 11/19/22 09:38 Allergies Allergy/AdvReac Type Severity Reaction Status Date / Time No Known Allergies Allergy Unknown Verified 11/19/22 09:37 Home Medications Medication Instructions Recorded Confirmed Type venlafaxine 37.5 mg See Rx Instructions .Route 06/19/22 11/11/22 Rx capsule,extended release 24 hr .COMPLEX #90 caps omeprazole 40 mg capsule,delayed 40 mg PO DAILY #90 caps 10/15/22 11/11/22 Rx release amiodarone 400 mg tablet 400 mg PO DAILY 11/11/22 11/11/22 History apixaban 5 mg tablet (Eliquis) 5 mg PO BID 11/11/22 11/11/22 History Patient hx anesthesia problems: none Family hx anesthesia problems: none Results Review: All pre-operative results and documents have been reviewed as part of the pre-operative evaluation. [facility] Past Medical History Medical History Anxiety Atrial fibrillation Ivan's esophageal ulceration Broken femur August 2018 Colon cancer screening Epigastric pain GERD with esophagitis Hyperthyroidism Hyperthyroidism Pulmonary emphysema Transaminitis Surgical History Surgical History H/O tubal ligation Family History Family History Mother Family history of malignant neoplasm of cervix Sibling Acute myocardial infarction Lung cancer Social History Social History Smoking packs per day: 1 Smoking cigarettes per day: 20.0 Years smoked: 40 Smoking pack-years: 40.00 Smoking status: Former smoker Tobacco type: cigarettes Second hand tobacco smoke exposure: Yes Smoking end date: 03/09/21 Alcohol intake: former Substance use: never Substance use type: does not use Living arrangements: with family Gender identity (if verbalized by the patient): Female Spiritual care concerns: No Anes - Eval Final PreProcedure Day of Procedure 11/19/22 10:11 Patient weight: normal Heart: regular rate and rhythm Lungs: clear to auscultation Airway: Mallampati scale class II Neurological: alert and oriented Last oral intake: >/= 8 hours ASA classification: II Emergent: no Anesthetic plan: proceed Anesthesia type and monitoring: general GIVS and standard monitoring Results Review: All pre-operative results and documents have been reviewed as part of the pre-operative evaluation. Informed Consent: The patient's anesthetic plan and its attendant risks and benefits were discussed with the patient/family/POA. Questions were solicited and answers provided to the satisfaction of the patient/family/POA.
--- NOTE | 2022-11-19 10:15 | PM.HPGS ---
History of Present Illness History of Present Illness Consent: Risks, benefits, and alternatives have been discussed and questions answered. Patient agrees to proceed with procedure. Chief complaint: GERD, Barretts' Narrative: Mireya Manriquez is a 61 year old female with gerd and small size Ivan's 10/2021 taking ppi, lately with epigastric pain Review of Systems Constitutional: Constitutional: Denies headache(s) and Denies weakness Eyes: Eyes: Denies blurry vision ENT: Reports Normal hearing present, Denies headache(s) and Denies neck pain Cardiovascular: Cardiovascular: Denies chest pain and Denies dyspnea Respiratory: Respiratory: Denies dyspnea Gastrointestinal: Gastrointestinal: Reports no additional gastrointestinal complaints Genitourinary: Genitourinary: Denies dysuria Musculoskeletal: Musculoskeletal: Denies neck pain Integumentary/Breasts: Skin/Breast: Denies dry skin Neurologic: Reports Normal hearing present, Denies headache(s) and Denies weakness Psychiatric: Psychiatric: Denies anxiety Endocrine: Endocrine: Denies change in body appearance Hematologic/Lymphatic: Hematologic/Lymphatic: Denies easy bleeding Allergic/Immunologic: Allergic/Immunologic: Denies urticaria PMFSH Past Medical History Medical History Anxiety Atrial fibrillation Ivan's esophageal ulceration Broken femur August 2018 Colon cancer screening Epigastric pain GERD with esophagitis Hyperthyroidism Hyperthyroidism Pulmonary emphysema Transaminitis Surgical History Surgical History H/O tubal ligation Family History Family History Mother Family history of malignant neoplasm of cervix Sibling Acute myocardial infarction Lung cancer Social History Social History Smoking packs per day: 1 Smoking cigarettes per day: 20.0 Years smoked: 40 Smoking pack-years: 40.00 Smoking status: Former smoker Tobacco type: cigarettes Second hand tobacco smoke exposure: Yes Smoking end date: 03/09/21 Alcohol intake: former Substance use: never Substance use type: does not use Living arrangements: with family Gender identity (if verbalized by the patient): Female Spiritual care concerns: No Meds Home Medications and Allergies Home Medications Medication Instructions Recorded Confirmed Type venlafaxine 37.5 mg See Rx Instructions .Route 06/19/22 11/11/22 Rx capsule,extended release 24 hr .COMPLEX #90 caps omeprazole 40 mg capsule,delayed 40 mg PO DAILY #90 caps 10/15/22 11/11/22 Rx release amiodarone 400 mg tablet 400 mg PO DAILY 11/11/22 11/11/22 History apixaban 5 mg tablet (Eliquis) 5 mg PO BID 11/11/22 11/11/22 History Allergies Allergy/AdvReac Type Severity Reaction Status Date / Time No Known Allergies Allergy Unknown Verified 11/19/22 09:37 Vital Signs Vital Signs - 24 hr 11/19/22 09:38 Temperature 97.6 F Pulse Rate 73 Respiratory Rate 18 Blood Pressure 126/73 Pulse Oximetry 97 Oxygen Delivery Room Air Exam Const: General: comfortable and no acute distress HENMT: Face/Nose/Sinus: Normal nares present Eyes: General: appearance normal, both eyes and all related structures Neck: Neck: no JVD Resp: Auscultation: clear to auscultation bilaterally Cardio: Rate: regular rate Rhythm: regular rhythm GI: Inspection: non-distended GI Palp: Yes Soft to palpation Skin: General skin exam: normal color Neuro: General: gait normal Speech: normal speech Extrem: General: normal to inspection Psych: Mental Status: mental status grossly normal Assessment and Plan Assessment and plan (1) Ivan's esophageal ulceration: Code(s): K22.10 - Ulcer of esophagus without bleeding Status: Acute Assessmen
[2022-11-19 10:32] VITALS: BP 113/66; PULSE 89; RESP 26; TEMP 36.4; O2SAT 97
[2022-11-19 10:42] VITALS: BP 123/66; PULSE 75; RESP 21; TEMP 36.4; O2SAT 97
[2022-11-19 10:51] VITALS: BP 112/59; PULSE 71; RESP 23; TEMP 36.4; O2SAT 97
== END 2022-11-19 10:56 | disposition home or self-care (01) ==
PROVIDERS: PCP Internal Medicine; Visit Provider Internal Medicine Gastroenterology
PROC: 0DJ08ZZ Inspection of Upper Intestinal Tract, Via Natural or Artificial Opening Endoscopic (ICD-10-PCS; CPT 43235; principal; 2022-11-19 10:45)
DX: K21.9 Gastro-esophageal reflux disease without esophagitis (principal); Z87.19 Personal history of other diseases of the digestive system; I48.91 Unspecified atrial fibrillation; J43.9 Emphysema, unspecified; F41.9 Anxiety disorder, unspecified; Z79.01 Long term (current) use of anticoagulants; Z87.891 Personal history of nicotine dependence
CPT/HCPCS: 43239; 88305; J2704; J7120

== ENCOUNTER 2023-01-27 11:07 | Outpatient (CLI) | payer OTHER, SELFPAY ==
[2023-01-27 11:39] LABS: Basophils Absolute Auto 0.1 K/mm3 (0.0-0.1); Eosinophils Absolute Auto 0.2 K/mm3 (0-0.3); Eosinophils Percent Auto 2.1 % (0-4.4); Hematocrit 44.8 % (37.0-47.0); Hemoglobin 14.4 g/dL (12.0-15.0); Immature Granulocyte Absolute 0.01 K/mm3 (0.00-0.031); Immature Granulocyte Percent A 0.1 % (0-0.5); Lymphocytes Absolute Auto 1.14 K/mm3 (0.9-3.2); Lymphocytes Percent Auto 14.4 % (18.3-44.2); Mean Corpuscular HGB Conc 32.1 g/dl (32-36); Mean Corpuscular Hemoglobin 30.5 pg (26-34); Mean Corpuscular Volume 94.9 fl (80-100); Mean Platelet Volume 10.8 fl (7.4-10.4); Monocytes Absolute Auto 0.8 K/mm3 (0.1-0.6); Monocytes Percent Auto 9.9 % (2.6-8.5); Neutrophils Absolute Auto 5.8 K/mm3 (1.3-6.7); Neutrophils Percent Auto 72.5 % (45.5-73.1); Platelet Count Result 180 k/mm3 (150-375); Red Blood Count 4.72 M/mm3 (4.2-5.4); White Blood Count 7.9 K/mm3 (4.5-10.0)
[2023-01-27 12:01] LABS: Alanine Aminotransferase 37 U/L (6-35); Albumin Level 4.4 g/dL (3.5-5.1); Alkaline Phosphatase 65 U/L (38-126); Anion Gap 4 mmol/L (8-16); Aspartate Amino Transferase 55 U/L (14-36); Bilirubin,Total 0.6 mg/dL (0.2-1.3); Blood Urea Nitrogen 16 mg/dL (7-17); Calcium 8.7 mg/dL (8.4-10.2); Carbon Dioxide 36 mmol/L (22-30); Chloride 97 mmol/L (98-107); Cholesterol 206 mg/dL (0-200); Estimated Glomerular Filt Rate > 60; Glucose 100 mg/dL (65-110); HDL Direct 74 mg/dL; Potassium 5.1 mmol/L (3.4-5.0); Sodium 137 mmol/L (137-145); Triglycerides 63 mg/dL (<150)
[2023-01-27 12:12] LABS: LDL Cholesterol Direct 89 mg/dL
[2023-01-27 12:28] LABS: Thyroid Stimulating Hormone 0.425 uIU/mL (0.465-4.680)
[2023-01-27 12:48] LABS: Vitamin D 25 Hydroxy 49.8 ng/mL
== END 2023-01-27 11:08 | disposition home or self-care (01) ==
LOC: ANHLAB 11:09
PROVIDERS: PCP Internal Medicine; Visit Provider Nurse Practitioner
DX: E05.90 Thyrotoxicosis, unspecified without thyrotoxic crisis or storm (principal); E55.9 Vitamin D deficiency, unspecified; Z13.29 Encounter for screening for other suspected endocrine disorder; Z13.220 Encounter for screening for lipoid disorders
CPT/HCPCS: 36415; 80053; 80061; 82306; 84443; 85025

== ENCOUNTER 2023-04-09 11:37 | Outpatient (CLI) | payer OTHER, SELFPAY ==
[2023-04-09 12:26] LABS: Basophils Absolute Auto 0.1 K/mm3 (0.0-0.1); Basophils Percent Auto 0.7 % (0.2-1.2); Eosinophils Absolute Auto 0.1 K/mm3 (0-0.3); Eosinophils Percent Auto 1.2 % (0-4.4); Hematocrit 45.2 % (37.0-47.0); Hemoglobin 14.5 g/dL (12.0-15.0); Immature Granulocyte Absolute 0.01 K/mm3 (0.00-0.031); Immature Granulocyte Percent A 0.1 % (0-0.5); Lymphocytes Absolute Auto 0.92 K/mm3 (0.9-3.2); Lymphocytes Percent Auto 12.5 % (18.3-44.2); Mean Corpuscular HGB Conc 32.1 g/dl (32-36); Mean Corpuscular Volume 96.6 fl (80-100); Mean Platelet Volume 10.9 fl (7.4-10.4); Monocytes Absolute Auto 0.8 K/mm3 (0.1-0.6); Monocytes Percent Auto 10.7 % (2.6-8.5); Neutrophils Absolute Auto 5.5 K/mm3 (1.3-6.7); Neutrophils Percent Auto 74.8 % (45.5-73.1); Platelet Count Result 173 k/mm3 (150-375); Red Blood Count 4.68 M/mm3 (4.2-5.4); Red Cell Distribution Width 13.7 % (11.5-14.5); White Blood Count 7.4 K/mm3 (4.5-10.0)
[2023-04-09 12:37] LABS: Alanine Aminotransferase 50 U/L (6-35); Albumin Level 4.5 g/dL (3.5-5.1); Alkaline Phosphatase 77 U/L (38-126); Aspartate Amino Transferase 69 U/L (14-36); Bilirubin,Total 0.5 mg/dL (0.2-1.3); Blood Urea Nitrogen 11 mg/dL (7-17); Calcium 8.7 mg/dL (8.4-10.2); Carbon Dioxide > 40 mmol/L (22-30); Chloride 89 mmol/L (98-107); Cholesterol 181 mg/dL (0-200); Estimated Glomerular Filt Rate > 60; Glucose 85 mg/dL (65-110); HDL Direct 77 mg/dL; Potassium 4.9 mmol/L (3.4-5.0); Sodium 132 mmol/L (137-145); Triglycerides 63 mg/dL (<150)
[2023-04-09 12:47] LABS: LDL Cholesterol Direct 82 mg/dL
[2023-04-09 12:54] LABS: Free T4 Free Thyroxine 2.23 ng/mL (0.78-2.19)
[2023-04-09 13:07] LABS: Total Triiodothyronine (T3) 0.88 NG/ML (0.97-1.69)
== END 2023-04-09 11:38 | disposition home or self-care (01) ==
PROVIDERS: PCP Internal Medicine; Visit Provider Internal Medicine Cardiovascular Disease
DX: I48.91 Unspecified atrial fibrillation (principal); I49.3 Ventricular premature depolarization; R53.83 Other fatigue; M79.606 Pain in leg, unspecified; R00.2 Palpitations; Z86.79 Personal history of other diseases of the circulatory system; Z79.01 Long term (current) use of anticoagulants
CPT/HCPCS: 36415; 80053; 80061; 84439; 84443; 84480; 85025

== ENCOUNTER 2023-06-15 13:24 | Outpatient (CLI) | payer OTHER, SELFPAY ==
[2023-06-15 13:58] LABS: Basophils Absolute Auto 0.1 K/mm3 (0.0-0.1); Basophils Percent Auto 0.7 % (0.2-1.2); Eosinophils Absolute Auto 0.1 K/mm3 (0-0.3); Eosinophils Percent Auto 1.5 % (0-4.4); Immature Granulocyte Absolute 0.02 K/mm3 (0.00-0.031); Immature Granulocyte Percent A 0.2 % (0-0.5); Lymphocytes Absolute Auto 1.37 K/mm3 (0.9-3.2); Lymphocytes Percent Auto 16.6 % (18.3-44.2); Mean Corpuscular HGB Conc 31.9 g/dl (32-36); Mean Corpuscular Hemoglobin 31.3 pg (26-34); Mean Corpuscular Volume 97.9 fl (80-100); Mean Platelet Volume 10.9 fl (7.4-10.4); Monocytes Absolute Auto 0.9 K/mm3 (0.1-0.6); Monocytes Percent Auto 10.9 % (2.6-8.5); Neutrophils Absolute Auto 5.8 K/mm3 (1.3-6.7); Neutrophils Percent Auto 70.1 % (45.5-73.1); Platelet Count Result 194 k/mm3 (150-375); Red Cell Distribution Width 13.2 % (11.5-14.5); White Blood Count 8.3 K/mm3 (4.5-10.0)
[2023-06-15 14:10] LABS: INR 1.1; Prothrombin Time 15.1 Seconds (11.1-14.7)
[2023-06-15 14:11] LABS: Alanine Aminotransferase 40 U/L (6-35); Albumin Level 4.4 g/dL (3.5-5.1); Alkaline Phosphatase 61 U/L (38-126); Anion Gap 5 mmol/L (8-16); Aspartate Amino Transferase 51 U/L (14-36); Bilirubin,Total 0.6 mg/dL (0.2-1.3); Blood Urea Nitrogen 20 mg/dL (7-17); Calcium 9.3 mg/dL (8.4-10.2); Carbon Dioxide 38 mmol/L (22-30); Chloride 91 mmol/L (98-107); Estimated Glomerular Filt Rate > 60; Glucose 98 mg/dL (65-110); Potassium 5.6 mmol/L (3.4-5.0); Sodium 134 mmol/L (137-145)
[2023-06-15 17:20] LABS: Iron 119 ug/dL (37-170)
[2023-06-15 17:39] LABS: Percent Iron Saturation 27 % (20-50)
== END 2023-06-15 13:25 | disposition home or self-care (01) ==
LOC: ANHLAB 13:26
PROVIDERS: PCP Internal Medicine; Visit Provider Internal Medicine Cardiovascular Disease
DX: I48.91 Unspecified atrial fibrillation (principal); I49.3 Ventricular premature depolarization; R63.4 Abnormal weight loss; R53.83 Other fatigue; R00.2 Palpitations; M79.606 Pain in leg, unspecified; Z13.6 Encounter for screening for cardiovascular disorders; Z86.79 Personal history of other diseases of the circulatory system; Z79.01 Long term (current) use of anticoagulants; Z91.89 Other specified personal risk factors, not elsewhere classified
CPT/HCPCS: 36415; 80053; 82533; 82728; 83540; 83550; 83735; 85025; 85610

== ENCOUNTER 2023-08-03 15:34 | Outpatient (CLI) | payer OTHER, SELFPAY ==
[2023-08-03 16:34] LABS: Appearance Urine Clear (Clear); Bacteria Urine None Seen /hpf; Bilirubin Urine Negative (Negative); Blood Urine Negative (Negative); Calcium Oxalate Crystals Urine Present /hpf; Color Urine Dark Yellow (Yellow); Glucose Urine UA Negative (Negative); Ketones Urine Trace mg/dL (Negative); Leukocyte Esterase Ur 1+ LEU/UL (Negative); Mucus Urine Present /lpf; Need Manual Microscopic Reviewed; Nitrate Urine Negative (Negative); Protein Urine 2+ mg/dL (Negative); Specific Grav Ur 1.028 (1.001-1.035); Squamous Epithelial Cell Urine Occasional /hpf (Few)
[2023-08-03 16:38] LABS: Add Urine Microscopic? YES
[2023-08-04 14:24] LABS: Creatinine Urine 170.6 mg/dL
[2023-08-04 14:28] LABS: MALB Creatinine Ratio 110.3 mg/g (0-30); Microalbumin Urine Random 188.1 mg/L (0-16.7)
== END 2023-08-03 15:35 | disposition home or self-care (01) ==
LOC: ANHLAB 15:35
PROVIDERS: PCP Internal Medicine; Visit Provider Nurse Practitioner
DX: R80.9 Proteinuria, unspecified (principal); R30.0 Dysuria
CPT/HCPCS: 81001; 82043; 87077; 87086; 87088